=== PATIENT | male | born 1995 | race Caucasian/White ===

== ENCOUNTER 2018-12-05 21:18 | Emergency (ER) | payer BC ==
[~2018-12-05] VITALS: Ht 172.7 cm; Wt 99.8 kg
[~2018-12-05 21:18] MED LIST: NORCO 5-325 TA1 EAC1 PO
[2018-12-05 21:24] VITALS: BP 133/70
[2018-12-05] MEDS ORDERED: HYDROCODONE-AP1 EAC6 PO (21:38)
== END 2018-12-05 21:53 | disposition home or self-care (01) ==
LOC: M.ERS 21:18
DX: S86.811A Strain of other muscle(s) and tendon(s) at lower leg level, right leg, initial encounter (principal); X58.XXXA Exposure to other specified factors, initial encounter; Y93.89 Activity, other specified; Y92.89 Other specified places as the place of occurrence of the external cause; Y99.8 Other external cause status; F17.200 Nicotine dependence, unspecified, uncomplicated

== ENCOUNTER 2019-08-21 10:58 | Emergency (ER) | payer OTHER ==
[~2019-08-21] VITALS: Ht 172.7 cm; Wt 99.8 kg
[~2019-08-21 10:58] MED LIST changes: +HYDROCODONE-AP1 EAC6 PO
[2019-08-21] MEDS ORDERED: MELOXICAM7.5 MG PO (12:25)
[2019-08-21 12:34] VITALS: BP 141/79
== END 2019-08-21 12:35 | disposition home or self-care (01) ==
LOC: M.ERS 10:58
DX: S86.911A Strain of unspecified muscle(s) and tendon(s) at lower leg level, right leg, initial encounter (principal); M17.11 Unilateral primary osteoarthritis, right knee; X58.XXXA Exposure to other specified factors, initial encounter; Y93.89 Activity, other specified; Y92.89 Other specified places as the place of occurrence of the external cause; Y99.8 Other external cause status